=== PATIENT | male | born 1965 | race Caucasian/White ===

== ENCOUNTER 2017-10-31 11:17 | Emergency (ER) | payer SELFPAY ==
[2017-10-31] MEDS ORDERED: KETOROLAC TROMETHAMINE INJ 30 MG/ML VIAL IV ONE (11:44)
--- NOTE | 2017-10-31 11:55 | ED.PDOC ---
History of Present Illness - General Chief Complaint: Skin/Abrasion/Tear Stated Complaint: R shoulder discomfort, skin irritation Time Seen by Provider: 10/31/17 11:38 Source: patient Exam Limitations: no limitations Additional Information: C/O PAIN AND SWELLING TO R ANT SHOULDER. NO HX OF TRAUMA. DID CRAWL UNDER A HOUSE SUSTAINING CACTUS INJURY TO THE L POST SHOULDER BUT NONE TO THE RIGHT. SOME SWELLING AND REDNESS. PAIN WITH MOTION. WAS EVALUATED BY ER AT [facility] AND TOLD HE HAD "INFECTION IN THE MUSCLE". - History of Present Illness Severity: moderate Improving Factors: nothing Worsening Factors: movement Associated Symptoms: other - NONE Allergies/Adverse Reactions: Allergies Aspirin Allergy (Verified 10/31/17 11:39) Other Facial swelling Home Medications: Ambulatory Orders NK [NK] 10/31/17 Review of Systems - Review of Systems Constitutional: Denies: chills, fever EENTM: States: no symptoms reported Respiratory: Denies: cough, short of breath Cardiology: Denies: chest pain, palpitations, syncope Gastrointestinal/Abdominal: Denies: nausea, vomiting Genitourinary: States: no symptoms reported Musculoskeletal: States: joint pain, joint swelling. Denies: back pain, neck pain Skin: States: other - SWELLING/ REDNESS Neurological: States: no symptoms reported Endocrine: States: no symptoms reported Hematologic/Lymphatic: States: no symptoms reported Past Medical History (General) - Patient Medical History Hx Stroke: No Hx Congestive Heart Failure: No Hx Diabetes: No Surgical History: no surgical history - Vaccination History Hx Tetanus, Diphtheria Vaccination: - 10/31/17 Hx Influenza Vaccination: No Hx Pneumococcal Vaccination: No - Social History Hx Tobacco Use: Yes Hx Alcohol Use: Yes - SOCIAL Family Medical History - Family History Father Living Status: Cause of : [place] Physical Exam - Physical Exam General Appearance: Alert, No apparent distress Eye Exam: bilateral normal Ears, Nose, Throat: hearing grossly normal, normal ENT inspection Neck: non-tender, full range of motion, supple Respiratory: lungs clear, normal breath sounds Cardiovascular/Chest: regular rate, rhythm, no murmur Gastrointestinal/Abdominal: non tender, soft Back Exam: normal inspection, no CVA tenderness Extremity: normal capillary refill, other - SWELLING SUP ASPECT R SHOULDER. WARM AND TTP. NO OBVIOUS JT EFFUSION, DECREASED ROM SECONDARY TO PAIN. NVI. Neurologic: no motor/sensory deficits, alert, normal mood/affect, oriented x 3 Skin Exam: other - SLIGHT ERYTHEMA, NO ECCHYMOSIS Lymphatic: no adenopathy Progress - Progress Progress: 10/31/17 12:47 ELEVATED WBC AND CRP, ESR PEND. WILL GET CT R/O INTRA ARTICULAR-ABSCESS 10/31/17 14:20 CT SHOWS WIDENING AC JT. NO ABSCESS OR BONY EROSIONS. D/W DR ALVARENGA RECOMMENDS TRANSFER HE IS OOT UNTIL FRIDAY. PT DENIES IVDA, D/W DR BYRNE REC ASPIRATION PRIOR TO TRANSPORTS. 10/31/17 14:37 D/W DR OSBORNE, ACCEPTS PT IN TRANSFER. - EKG/XRAY/CT XRAY: SHOULDER: SOFT TISSUE SWELLING, AC DJD, NO ACUTE ABN CT Ordered: Yes Procedures - Incision and Drainage #1 Procedure and Prep: betadine prep Procedure Comments: ATTEMPTED ASPIRATION OF AC JT WITHOUT RETURN OF FLUID. ANESTH 1% LIDO WITHOUT EPI. BETADINE PREP. Departure - Departure Clinical Impression: Cellulitis Qualifiers: Site of cellulitis: other site Qualified Code(s): L03.818 - Cellulitis of other sites ICD-10 Supporting Text: SUSPECT SEPTIC A/C JT. Time of Disposition: 15:41 Disposition: Transfer to Hospital Condition: Fair Departure Forms: ED Discharge - Pt. Copy, Patient Portal Self Enrollment Instructions: DI for Abrasion Home Medications: Ambulatory Orders NK [NK] 10/31/17
--- NOTE | 2017-10-31 12:26 | RAD ---
EXAM DESCRIPTION: Shoulder,Right 2 or More Views CLINICAL HISTORY: 52 yearsMale, PAIN AND SWELLING COMPARISON: None. IMPRESSION: 2 views of the right shoulder demonstrate no evidence of acute fracture, dislocation, or destructive osseous lesion. 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 If there is concern for rotator cuff pathology, MRI may further evaluate. Mild glenohumeral degenerative changes. The visualized right lung is clear. Electronically signed by: Gentry Jeter MD 10/31/2017 12:25 PM CDT
--- NOTE | 2017-10-31 13:45 | CT ---
EXAM DESCRIPTION: Upper Extremity: Computed Tomography. CLINICAL HISTORY: R SHOULDER SWELLING, R/O ABSCESS COMPARISON: Right shoulder radiographs 10/31/2017. TECHNIQUE: Spiral, axial 2.5 mm scans through the right shoulder, clavicle, surrounding soft tissues, and brachial plexus region without contrast. Coronal and sagittal 2.0 mm reconstructions. Total Exam DLP: 1351.58 mGy-cm. This exam was performed according to our departmental CT dose-optimization program which includes automated exposure control, adjustment of the mA and/or kV according to patient size and/or use of iterative reconstruction technique; to reduce radiation dose to as low as reasonably achievable (ALARA). FINDINGS: Soft tissue edema superior to the right AC joint with swelling of the right AC joint capsule. Widening of the joint space. Subchondral erosion of the acromion facet and subchondral radiolucencies in the distal clavicle facet. No fracture of the clavicle. No fluid collection superior or inferior to the AC joint or elsewhere in the soft tissues. Decreasing soft tissue edema from lateral to medial. Edema also posterior to the supraspinatus and teres minor muscles decreasing laterally to medially. Degenerative changes in the greater tuberosity and the lesser tuberosity. No bone destruction or erosion in the remainder of the clavicle. Included right lung and ribs are unremarkable. No soft tissue mass or fluid collection in the triangle between the rib cage, clavicle, and scapula. Nonreactive lymph nodes. IMPRESSION: Arthrosis and widening of the right acromioclavicular joint space with subchondral bone changes and effusion. No kandace bone destruction and no abscess formation. No fracture. Minimal degenerative changes in the humeral head Electronically signed by: Eliseo Yepez MD 10/31/2017 1:44 PM CDT
[2017-10-31 14:32] VITALS: O2SAT 94
[2017-10-31] MEDS ORDERED: LIDOCAINE 1% 10 ML VIAL INJ ONE (14:48)
[2017-10-31] MEDS ORDERED: POVIDONE IODINE 10 % 15 ML UD TOP ONE (14:48)
[2017-10-31] MEDS ORDERED: PIPERACILLIN/TAZOBACTAM 3.375 GM in SODIUM CHLORIDE 0.9% 100ML 100 ML IVPB ONE (15:37)
[2017-10-31 15:52] VITALS: TEMP 98.9
[2017-10-31] MEDS ORDERED: PIPERACILLIN/TAZOBACTAM 3.375 GM VIAL IVPB ONE (15:54)
[2017-10-31] MEDS ORDERED: SODIUM CHLORIDE 0.9% 100ML 100 ML IVPB ONE (15:54)
[2017-10-31 16:43] VITALS: BP 146/75
== END 2017-10-31 16:35 | disposition short-term general hospital (02) ==
LOC: ER 11:17
DX: L03.818 Cellulitis of other sites (principal); Z87.891 Personal history of nicotine dependence
CPT/HCPCS: 36415; 73030; 73200; 80053; 85025; 85651; 86140; 87040; J1885; J2543; J7050

== ENCOUNTER 2017-12-11 19:47 | Emergency (ER) | payer SELFPAY ==
--- NOTE | 2017-12-11 20:13 | ED.PDOC ---
History of Present Illness - General Chief Complaint: Problem Stated Complaint: unable to void Time Seen by Provider: 12/11/17 19:53 Additional Information: 52 YEAR OLD DIABETIC HERE FOR EVALUATION OF DIFFICULTY URINATING SINCE THIS AFTERNOON HE HAS NO PAIN IN THE LOWER ABDOMEN BUT HAS INCREASING FREQUENCY AND DYSURIA NO FEVER NO FLANK PAIN - History of Present Illness Timing/Duration: 4-6 hours Severity: mild Worsening Factors: nothing Associated Symptoms: denies symptoms Allergies/Adverse Reactions: Allergies Aspirin Allergy (Verified 10/31/17 11:39) Other Facial swelling Home Medications: Ambulatory Orders Sulfa/Trimeth 800/160 (Ds) Tab [Bactrim DS Tab] 1 ea PO Q12HR #20 tab 12/11/17 Review of Systems - Review of Systems Constitutional: States: no symptoms reported EENTM: States: no symptoms reported Respiratory: States: no symptoms reported Cardiology: States: no symptoms reported Gastrointestinal/Abdominal: States: no symptoms reported Genitourinary: States: see HPI Musculoskeletal: States: no symptoms reported Skin: States: no symptoms reported Neurological: States: no symptoms reported Endocrine: States: no symptoms reported Hematologic/Lymphatic: States: no symptoms reported Past Medical History (General) - Patient Medical History Hx Stroke: No Hx Congestive Heart Failure: No Hx Diabetes: No - Vaccination History Hx Tetanus, Diphtheria Vaccination: - 10/31/17 Hx Influenza Vaccination: No Hx Pneumococcal Vaccination: No - Social History Hx Tobacco Use: Yes Hx Alcohol Use: Yes - SOCIAL Family Medical History - Family History Father Living Status: Cause of : [place] Physical Exam - Physical Exam General Appearance: Alert, Anxious Eye Exam: bilateral normal Ears, Nose, Throat: hearing grossly normal, normal ENT inspection, normal pharynx, abnormal TM (R) Neck: non-tender, full range of motion, supple Respiratory: chest non-tender, lungs clear, normal breath sounds, no respiratory distress, no accessory muscle use, respiratory distress Cardiovascular/Chest: normal peripheral pulses, regular rate, rhythm, no edema, no gallop Gastrointestinal/Abdominal: normal bowel sounds, non tender, soft, no organomegaly, no pulsatile mass, other - HE HAS VERY TIGHT PHIMOSIS AND THERE WAS A PLUG OF DEBRI AT THE PHIMOSIS ONCE IT WAS RELEASED HE WAS ABLE TO VOID Extremity: normal range of motion, non-tender, normal inspection Neurologic: credit assistant II-XII nml as tested, no motor/sensory deficits, alert Departure - Departure Clinical Impression: Phimosis, Urinary tract infection Time of Disposition: 21:48 Disposition: Discharge to Home or Self Care Condition: Good Departure Forms: ED Discharge - Pt. Copy, Patient Portal Self Enrollment Instructions: DI for Urinary Tract Infection (UTI) Diet: diabetic diet Referrals: Perez Hancock MD [Primary Care Provider] - 1-2 Weeks Prescriptions: Sulfa/Trimeth 800/160 (Ds) Tab [Bactrim DS Tab] 1 ea PO Q12HR #20 tab Home Medications: Ambulatory Orders Sulfa/Trimeth 800/160 (Ds) Tab [Bactrim DS Tab] 1 ea PO Q12HR #20 tab 12/11/17 Comments: pt was advised to get a urology consulation to correct the severe phimosis
[2017-12-11 20:52] VITALS: O2SAT 96
[2017-12-11] MEDS ORDERED: SULFA/TRIMETH TAB 800/160 (ER) 1 EA TAB PO ONE (21:50)
[2017-12-11 22:29] VITALS: BP 134/92; TEMP 97.1
== END 2017-12-11 22:15 | disposition home or self-care (01) ==
LOC: ER 19:47
DX: N39.0 Urinary tract infection, site not specified (principal); N47.1 Phimosis; E11.9 Type 2 diabetes mellitus without complications; Z88.6 Allergy status to analgesic agent; Z87.891 Personal history of nicotine dependence

== ENCOUNTER 2020-02-02 18:04 | Emergency (ER) | payer OTHER, SELFPAY ==
[2020-02-02 19:38] VITALS: O2SAT 96
[2020-02-02] MEDS ORDERED: LIDOCAINE 2 % GEL 5 ML TUBE TOP ONE (19:57)
--- NOTE | 2020-02-02 20:10 | ED.PDOC ---
History of Present Illness - General Chief Complaint: Problem Stated Complaint: burning with urination Time Seen by Provider: 02/02/20 18:41 Source: patient, RN notes reviewed, Vital Signs reviewed Exam Limitations: no limitations - History of Present Illness Initial Comments: 54 y/o with anatomic variant to his penis has urinary retention and burning with the litlle urine he can pass. No fever. no back pain. Timing/Duration: this morning Quality: moderate, burning, intermittent Onset Location: urethral Radiation: none Activites at Onset: none Prior abdominal problems: similar symptoms Improving Factors: nothing Worsening Factors: nothing Associated Symptoms: dysuria, loss of bladder control, nocturia, urinary frequency Allergies/Adverse Reactions: Allergies Aspirin Allergy (Verified 10/31/17 11:39) Other Facial swelling Home Medications: Ambulatory Orders Sulfa/Trimeth 800/160 (Ds) Tab [Bactrim DS Tab] 1 ea PO Q12HR #20 tab 12/11/17 Ciprofloxacin HCl [Cipro] 500 mg PO BID 10 Days #20 tab 02/02/20 Review of Systems - Review of Systems Constitutional: States: no symptoms reported EENTM: States: no symptoms reported Respiratory: States: no symptoms reported Cardiology: States: no symptoms reported Gastrointestinal/Abdominal: States: no symptoms reported Musculoskeletal: States: see HPI Skin: States: no symptoms reported Neurological: States: no symptoms reported Past Medical History (General) - Patient Medical History Hx Stroke: No Hx Congestive Heart Failure: No Hx Diabetes: No - Vaccination History Hx Tetanus, Diphtheria Vaccination: - 10/31/17 Hx Influenza Vaccination: No Hx Pneumococcal Vaccination: No - Social History Hx Tobacco Use: No Hx Chewing Tobacco Use: Yes Hx Alcohol Use: Yes - SOCIAL Family Medical History - Family History Father Living Status: Cause of : [place] Physical Exam - Physical Exam General Appearance: Alert, No apparent distress Eyes, Ears, Nose, Throat Exam: PERRL/EOMI, normal ENT inspection Neck: full range of motion, supple, normal inspection Cardiovascular/Respiratory: regular rate, rhythm, no M/R/G, no JVD, normal breath sounds, no respiratory distress Gastrointestinal/Abdominal: normal bowel sounds, other - fullness lower abdomen Male Genital Exam: other - possible hypospadias, uncircumcised and can't retact the foreskin completely Back Exam: normal inspection, no CVA tenderness Extremity: normal range of motion, non-tender, normal inspection Skin Exam: normal color, warm/dry Progress - Progress Progress: 02/02/20 20:13 nurse was able to pass a 5 fr catheter but only drops of urine are draining 02/02/20 20:53 had fair drainage of cloudy urine from the rick. He feels better and wants to go. Advised him to f/u with urologist Departure - Departure Clinical Impression: Retention of urine, Phimosis Urinary tract infection Qualifiers: Urinary tract infection type: site unspecified Hematuria presence: with hematuria Qualified Code(s): N39.0 - Urinary tract infection, site not specified; R31.9 - Hematuria, unspecified Time of Disposition: 20:55 Disposition: Discharge to Home or Self Care Condition: Good Departure Forms: ED Discharge - Pt. Copy, Patient Portal Self Enrollment Instructions: Urinary Retention Referrals: Lourdes Odonnell NP [Primary Care Provider] - 1-2 Weeks Prescriptions: Ciprofloxacin HCl [Cipro] 500 mg PO BID 10 Days #20 tab Home Medications: Ambulatory Orders Sulfa/Trimeth 800/160 (Ds) Tab [Bactrim DS Tab] 1 ea PO Q12HR #20 tab 12/11/17 Ciprofloxacin HCl [Cipro] 500 mg PO BID 10 Days #20 tab 02/02/20
[2020-02-02] MEDS ORDERED: CIPROFLOXACIN 500 MG TAB PO ONE (20:14)
[2020-02-02 21:19] VITALS: BP 143/87; TEMP 97.9
== END 2020-02-02 21:19 | disposition home or self-care (01) ==
LOC: ER 18:04
DX: N39.0 Urinary tract infection, site not specified (principal); N47.1 Phimosis; R33.9 Retention of urine, unspecified; R31.9 Hematuria, unspecified; Z87.891 Personal history of nicotine dependence

== ENCOUNTER 2020-08-10 17:37 | Emergency (ER) | payer SELFPAY ==
--- NOTE | 2020-08-10 17:52 | ED.PDOC ---
History of Present Illness - General Time Seen by Provider: 08/10/20 17:38 Source: patient, RN notes reviewed, Vital Signs reviewed Exam Limitations: no limitations - History of Present Illness Initial Comments: 55 yo RHD male comes in with left arm burning. states it started yesterday, while walking, just on lateral mid upper arm. ALso has entire hand numbness. denies any neck pain or trauma. Pain worse with arm movement. Occurred: yesterday Pain - Upper Extremity: moderate: Upper arm, left Allergies/Adverse Reactions: Allergies Aspirin Allergy (Verified 08/10/20 18:05) Other Facial swelling Home Medications: Ambulatory Orders Gabapentin 300 mg PO QID PRN #20 aleta 08/10/20 Prednisone 20 mg PO DAILY #4 tab 08/10/20 Review of Systems - Review of Systems Constitutional: Denies: chills, fever EENTM: Denies: nose pain, mouth pain Respiratory: Denies: cough, short of breath Cardiology: Denies: chest pain, palpitations Gastrointestinal/Abdominal: Denies: abdominal pain, nausea, vomiting Genitourinary: Denies: dysuria, frequency Musculoskeletal: States: muscle pain. Denies: back pain, neck pain Skin: Denies: rash Neurological: States: numbness, paresthesia. Denies: weakness Endocrine: Denies: unexplained weight gain, unexplained weight loss Hematologic/Lymphatic: Denies: easy bleeding, easy bruising Past Medical History (General) - Patient Medical History Hx Seizures: No Hx Stroke: No Hx Dementia: No Hx Asthma: No Hx Cardiac Disorders: No Hx Congestive Heart Failure: No Hx Pacemaker: No Hx Thyroid Disease: No Hx Diabetes: Yes Hx Gastroesophageal Reflux: No Hx Renal Disease: No Hx Cancer: No - Vaccination History Hx Tetanus, Diphtheria Vaccination: - 10/31/17 Hx Influenza Vaccination: No Hx Pneumococcal Vaccination: No - Social History Hx Tobacco Use: No Hx Chewing Tobacco Use: Yes Hx Alcohol Use: Yes - SOCIAL Family Medical History - Family History Father Living Status: Cause of : [place] Physical Exam - Physical Exam General Appearance: Alert, Comfortable, No apparent distress, Well Developed, Well Groomed, Well Hydrated, Well Nourished Eyes, Ears, Nose, Throat Exam: normal ENT inspection Neck: non-tender, full range of motion, supple, normal inspection Cardiovascular/Respiratory: no M/R/G, normal peripheral pulses, no JVD, normal breath sounds, no respiratory distress, tachycardia Abdominal Exam: non-tender, no organomegaly, no hernia Back Exam: normal inspection, no CVA tenderness, no vertebral tenderness Shoulder Exam: normal inspection, non-tender, no evidence of injury, normal ROM, pain - exacerbated by abduction shoulder more than 90 degrees. Elbow/Forearm Exam: normal inspection, non-tender, no evidence of injury, normal ROM Wrist Exam: normal inspection, non-tender, no evidence of injury, normal ROM Hand Exam: normal inspection, non-tender, no evidence of injury, normal ROM Neuro/Tendon: normal motor functions, normal tendon functions, responds to pain, no evidence tendon injury Mental Status: alert, oriented x 3 Skin Exam: normal color, warm/dry Progress - Progress Progress: 08/10/20 17:59 partial ddx: spinal stenosis, herniated disc, storke, cad, lateral epicondylitis, others considered. I do not have a high suspension for stroke/CAD, however, due to location of complete hand numbness will work up for stroke. no pronator drift. CN intact, stable gait neruopathic pain seems to be in the c6 dermatome. no rash or evidence of shingles. Given lyrica x 1 for burning sensation. pain continued given morphine. Given 1 L NS Bolus. Discuss steroids with patient. Told patient monitor glucose carefully while on steroids. He is on a SSI and can adjust as needed. The data reviewed when caring for this patient included: nurse notes, prior records, etc. The history and assessments from nurses notes were reviewed and considered, and the patient's home medication list was also reviewed and considered. My assessment and the results of testing completed here in the ED were discussed with the patient. All questions were answered, and he express understanding of my assessment and the plan. He have been instructed to return if their symptoms worsen, and have been asked to follow up with their primary care physician to recheck today's presenting complaint. Strict return precautions given. I have reviewed medication, benefits, alternatives and side effects. Patient decided to proceed with medication. Monica Ng DO #[id number] 08/10/20 20:05 08/10/20 20:10 08/10/20 20:12 - Results/Orders Results/Orders: 08/10/20 18:00 EKG STAT Laboratory Results WBC 12.3 K/mm3 (4.8-10.8) H 08/10/20 18:01 RBC 5.83 M/mm3 (4.70-6.10) 08/10/20 18:01 Hgb 16.1 gm/dL (14.0-18.0) 08/10/20 18:01 Hct 48.3 % (42.0-52.0) 08/10/20 18:01 MCV 82.9 fl (80.0-94.0) 08/10/20 18: MCH 27.7 pg (27.0-31.0) 08/10/20 18: MCHC 33.4 g/dL (33.0-37.0) 08/10/20 18: RDW 14.4 % (11.5-14.5) 08/10/20 18: Plt Count 226 K/mm3 (130-400) 08/10/20 18:01 MPV 9.0 fl (7.40-10.4) 08/10/20 18:01 Absolute Neuts (auto) 9.30 K/uL (1.8-6.8) H 08/10/20 18:01 Absolute Lymphs (auto) 1.90 K/uL (1.0-3.4) 08/10/20 18:01 Absolute Monos (auto) 0.80 K/uL (0.2-0.8) 08/10/20 18: Absolute Eos (auto) 0.10 K/uL (0.0-0.4) 08/10/20 18:01 Absolute Basos (auto) 0.20 K/uL (0.0-0.1) H 08/10/20 18:01 Neutrophils % 75.2 % (42.0-78.0) 08/10/20 18: Lymphocytes % 15.6 % (20.0-50.0) L 08/10/20 18: Monocytes % 6.8 % (2.0-9.0) 08/10/20 18: Eosinophils % 1.1 % (1.0-5.0) 08/10/20 18:01 Basophils % 1.3 % (0.0-2.0) 08/10/20 18: PT 10.2 SECONDS (9.0-10.9) 08/10/20 18: INR 1.03 (0.9-1.15) 08/10/20 18:01 PTT (SP) 23.0 SECONDS (21.8-31.6) 08/10/20 18:01 Sodium 138 mmol/L (135-145) 08/10/20 18:01 Potassium 4.0 mmol/L (3.6-5.0) 08/10/20 18:01 Chloride 102 mmol/L (101-111) 08/10/20 18:01 Carbon Dioxide 22 mmol/L (21-31) 08/10/20 18:01 Anion Gap 18.0 (12-18) 08/10/20 18: BUN 23 mg/dL (7-18) H 08/10/20 18: Creatinine 1.16 mg/dL (0.6-1.3) 08/10/20 18: BUN/Creatinine Ratio 19.8 (10-20) 08/10/20 18: Random Glucose 240 mg/dL (70-105) H 08/10/20 18: Serum Osmolality 287.2 mOsm/L (275-295) 08/10/20 18: Calcium 9.2 mg/dL (8.4-10.2) 08/10/20 18: Magnesium 1.9 mg/dL (1.8-2.5) 08/10/20 18: Total Bilirubin 0.7 mg/dL (0.2-1.0) 08/10/20 18: AST 22 IU/L (10-42) 08/10/20 18: ALT 13 IU/L (10-60) 08/10/20 18: Alkaline Phosphatase 78 IU/L (42-121) 08/10/20 18: Troponin I < 0.02 ng/mL (0.01-0.05) 08/10/20 18: Serum Total Protein 7.6 gm/dL (6.4-8.2) 08/10/20 18: Albumin 4.2 g/dl (3.2-5.5) 08/10/20 18: Globulin 3.4 gm/dL (2.3-3.5) 08/10/20 18:01 Albumin/Globulin Ratio 1.2 (1.1-1.9) 08/10/20 18:01 - EKG/XRAY/CT EKG: Sinus, Tachy - 119 Comments: normal intervals, q wave inferior lead, no acute ischemic changes, no prior XRAY: chest - no acute pathology CT: head/C-spine: no ich, c3-c4 narrowing, djd Departure - Departure Clinical Impression: Neuropathic pain DJD (degenerative joint disease) Qualifiers: Osteoarthritis location: spine Spinal region: cervical Spinal osteoarthritis complication: other spinal osteoarthritis Qualified Code(s): M47.892 - Other spondylosis, cervical region Time of Disposition: 19:56 Disposition: Discharge to Home or Self Care Instructions: Neuropathic Pain, Radiculopathy (DC) Diet: diabetic diet Activity: increase activity as tolerated Referrals: Daniel Vizcaino MD [Active Staff] - 1-5 Days Lourdes Odonnell NP [Primary Care Provider] - 1 Week Prescriptions: Gabapentin 300 mg PO QID PRN #20 aleta PRN Reason: Pain Prednisone 20 mg PO DAILY #4 tab Home Medications: Ambulatory Orders Gabapentin 300 mg PO QID PRN #20 aleta 08/10/20 Prednisone 20 mg PO DAILY #4 tab 08/10/20
[2020-08-10] MEDS ORDERED: PREGABALIN 75 MG CAP PO ONE (17:56)
--- NOTE | 2020-08-10 18:19 | RAD ---
EXAM DESCRIPTION: Chest,1 View CLINICAL HISTORY: left arm pain/cp COMPARISON: None FINDINGS: Cardiac silhouette is within normal limits. There is no focal parenchymal or pleural disease. There is no acute osseous process visualized. There are old left rib fractures. IMPRESSION: No evidence of acute cardiopulmonary disease. Electronically signed by: Benjamin Ayala MD 08/10/2020 6:17 PM [employer]
--- NOTE | 2020-08-10 18:22 | CT ---
EXAM DESCRIPTION: Cervical Spine CLINICAL HISTORY: left arm numbness COMPARISON: None Available TECHNIQUE: Contiguous axial images of the cervical spine were obtained without the administration of intravenous contrast followed by reconstruction images. This exam was performed according to our departmental dose-optimization program, which includes automated exposure control, adjustment of the mA and/or kV according to patient size and/or use of iterative reconstruction technique. FINDINGS: There is no acute fracture or subluxation. Prevertebral soft tissues are within normal limits. There is partial fusion of the C3 and C4 vertebral bodies. There is left neural foraminal narrowing at C3-C4. IMPRESSION: No acute fracture or subluxation. Degenerative changes. Electronically signed by: Benjamin Ayala MD 08/10/2020 6:21 PM [facility]
--- NOTE | 2020-08-10 18:24 | CT ---
EXAM DESCRIPTION: Head CLINICAL HISTORY: ARM NUMBNESS COMPARISON: None Available. TECHNIQUE: Contiguous axial images of the brain were obtained without the administration of intravenous contrast. This exam was performed according to our departmental dose-optimization program, which includes automated exposure control, adjustment of the mA and/or kV according to patient size and/or use of iterative reconstruction technique. FINDINGS: There is no acute intracranial hemorrhage or mass effect. Ventricular system is within normal limits. There is adequate sargent-white matter differentiation. There is no skull fracture. The visualized paranasal sinuses and mastoid air cells are within normal limits. IMPRESSION: No acute intracranial abnormalities. Electronically signed by: Benjamin Ayala MD 08/10/2020 6:23 PM [facility]
[2020-08-10] MEDS ORDERED: SODIUM CHLORIDE 0.9% 1000ML 1,000 ML IVS ONE (18:31)
[2020-08-10] MEDS ORDERED: MORPHINE SULFATE INJ 10 MG/ML VIAL IV ONE (18:31)
[2020-08-10] MEDS ORDERED: DEXAMETHASONE INJ 4 MG/ML VIAL IV ONE (19:06)
--- NOTE | 2020-08-10 19:49 | CT ---
PROCEDURE: CT Angiography Head and Neck With Intravenous Contrast CLINICAL INDICATION: The patient is 55 years old and is Male; hand numbness TECHNIQUE: Axial computed tomographic angiography images of the head and neck with intravenous contrast. This CT exam was performed using one or more of the following dose reduction techniques: automated exposure control, adjustment of the mA and/or kV according to patient size, and/or use of iterative reconstruction technique. MIP reconstructed images were created and reviewed. DLP: 805 mGy*cm COMPARISON: CT head without contrast of the same day. FINDINGS: HEAD: RIGHT ANTERIOR CEREBRAL ARTERY: Unremarkable. No occlusion or significant stenosis. No aneurysm. RIGHT MIDDLE CEREBRAL ARTERY: Unremarkable. No occlusion or significant stenosis. No aneurysm. RIGHT POSTERIOR CEREBRAL ARTERY: Unremarkable. No occlusion or significant stenosis. No aneurysm. LEFT ANTERIOR CEREBRAL ARTERY: Unremarkable. No occlusion or significant stenosis. No aneurysm. LEFT MIDDLE CEREBRAL ARTERY: Unremarkable. No occlusion or significant stenosis. No aneurysm. LEFT POSTERIOR CEREBRAL ARTERY: Unremarkable. No occlusion or significant stenosis. No aneurysm. BASILAR ARTERY: Unremarkable. No occlusion or significant stenosis. No aneurysm. NECK: RIGHT COMMON CAROTID ARTERY: Unremarkable. No significant stenosis. No dissection or occlusion. RIGHT INTERNAL CAROTID ARTERY: Less than 50% stenosis of the proximal right ICA. No dissection or occlusion. RIGHT EXTERNAL CAROTID ARTERY: Unremarkable. No occlusion. RIGHT VERTEBRAL ARTERY: Unremarkable. No significant stenosis. No dissection or occlusion. LEFT COMMON CAROTID ARTERY: Unremarkable. No significant stenosis. No dissection or occlusion. LEFT INTERNAL CAROTID ARTERY: Unremarkable. No significant stenosis. No dissection or occlusion. LEFT EXTERNAL CAROTID ARTERY: Unremarkable. No occlusion. LEFT VERTEBRAL ARTERY: Unremarkable. No significant stenosis. No dissection or occlusion. HEAD and NECK: BONES/JOINTS: No acute fracture. No dislocation. Reversal of cervical lordosis with multilevel anterolistheses. SOFT TISSUES: Unremarkable as visualized. No mass. THYROID: Visualized thyroid is normal. LUNG APICES: Apical lung zones are clear. SINUSES: Partially calcified focus in the right maxillary sinus. Mild left maxillary sinus mucosal thickening. MASTOID AIR CELLS: Mastoid air cells are pneumatized. ORBITS: The globes and orbits are within normal limits. CAROTID STENOSIS REFERENCE USING NASCET CRITERIA: % ICA stenosis = (1 - narrowest ICA diameter/diameter of distal cervical ICA) x 100. Mild - <50% stenosis. Moderate - 50-69% stenosis. Severe - 70-94% stenosis. Near occlusion - 95-99% stenosis. Occluded - 100% stenosis. IMPRESSION: 1. No cervical flow limiting stenosis or intracranial large vessel occlusion. 2. Less than 50% stenosis of the proximal right ICA. 3. Unchanged mild cerebral volume loss and chronic small vessel ischemic changes. Electronically signed by: Tawanda Holland DO 08/10/2020 7:47 PM [facility]
[2020-08-10] MEDS ORDERED: HYDROCOD/APAP 7.5/325 (ER DISP) #3 TAB PO ONE (19:55)
[2020-08-10] MEDS ORDERED: DEXAMETHASONE INJ 4 MG/ML VIAL ONE (20:01)
[2020-08-10 20:20] VITALS: BP 132/95; TEMP 97.7; O2SAT 99
== END 2020-08-10 20:10 | disposition home or self-care (01) ==
LOC: ER 17:37
DX: G62.9 Polyneuropathy, unspecified (principal); M47.892 Other spondylosis, cervical region; M79.622 Pain in left upper arm; R00.0 Tachycardia, unspecified; E11.9 Type 2 diabetes mellitus without complications; Z79.899 Other long term (current) drug therapy; Z88.6 Allergy status to analgesic agent; Z87.891 Personal history of nicotine dependence
CPT/HCPCS: 36415; 70450; 70496; 70498; 71045; 72125; 80053; 83735; 84484; 85025; 85610; 85730; 93005; J1100; J2270; J7030